=== PATIENT | male | born 1975 | race Caucasian/White ===

== ENCOUNTER → 2019-04-08 | Outpatient (CLI) | payer OTHER ==
--- NOTE | 2019-04-08 09:19 | MR ---
EXAMINATION TYPE: MR brain and iac wo/w con DATE OF EXAM: 04/08/2019 COMPARISON: None HISTORY: Sensorineural hearing loss, right ear CONTRAST: Performed utilizing 8 mL intravenous Gadavist gadolinium contrast. TECHNIQUE: Multiplanar, multiecho imaging on a 3.0 Aliyah magnet is performed through the brain. Atte ntion is paid to the internal auditory canals with thin section imaging. Postcontrast imaging is per formed through the internal auditory canals. FINDINGS:Craniovertebral junction is normal. The pituitary is normal. Diffusion-weighted imaging is performed. No suspicious hyperintensity is present to suggest an acute intracranial infarct or acute ischemic area. Signal within the brain is normal. There is a venous angioma within the right posterior parietal lobe , normal variant. Thin section imaging is performed through the internal auditory canals and cerebellar pontine angles. No cerebellar pontine angle masses are evident. The internal auditory canals appear normal without expansion or erosion. Postcontrast imaging was performed. No suspicious enhancement is evident within the internal audito ry canals or the included portions of the brain. Mucosal thickening is through the right maxillary sinus. There is some mucosal thickening within the anterior ethmoid air cells and within the frontal sinuses. Mastoid air cells are clear. IMPRESSIONS: 1. Normal internal auditory canals. 2. Venous angioma right posterior parietal lobe
== END | disposition home or self-care (01) ==
LOC: RADMRIMAIN 06:42
PROVIDERS: ATTEND Otolaryngology Otolaryngology/Facial Plastic Surgery
DX: Q28.3 Other malformations of cerebral vessels (principal)
CPT/HCPCS: 70553; A9585

== ENCOUNTER → 2021-01-26 | Outpatient (CLI) | payer OTHER ==
--- NOTE | 2021-01-26 18:09 | CONS ---
CONSULTATION REASON FOR CONSULTATION: Sleep apnea. HISTORY OF PRESENT ILLNESS: This patient was referred to me due to concerns of obstructive sleep apnea. The patient is a healthy 45-year-old male patient works for [employer] at [employer]. He does not feel any aircraft. His has been concerned about him snoring and quitting breathing in the middle of the night. The patient himself feels that he is not having any issues with his sleep quality. Never the less, with a recent 15 pounds weight gain, he has felt some increased tiredness and sleepiness during the day. His current Dunbar score is at 8. His sleep is non fragmented and he denies waking up in the middle of night choking or gasping for air. No restlessness in lower extremities. No choking or gasping sensation. He goes to bed around 11 p.m., wakes up 5 a.m. in the morning. On weekends, he wakes up at 8 o'clock in the morning, going to bed around midnight. No nocturia. No nocturnal heartburn, chest pain or shortness of breath. No sleep paralysis, hallucinations or cataplexy. No head trauma. PAST MEDICAL HISTORY: Depression, maintained on Lexapro, well treated. PAST SURGICAL HISTORY: Includes tonsillectomy, hernia repair (umbilical hernia) and right hip labrum tear repair. DRUG ALLERGIES: Not known. OUTPATIENT MEDICATIONS INCLUDE: Lexapro 10 mg p.o. daily. SOCIAL HISTORY: Nonsmoker. Drinks alcohol socially. No history of alcoholism. No history of IV drugs. He works for the [employer]. FAMILY HISTORY: Negative for sleep apnea. REVIEW OF SYSTEMS: Fourteen-point review of system was done. Positive findings are mentioned above in the history of present illness. PHYSICAL EXAMINATION: BP is 146/86, pulse 72, respirations 16, temperature 98.0, saturation 97% on room air. Height is 5 feet 10 inches. Weight 194. Neck size 16 inches. GENERAL appearance: Calm, comfortable. HEAD is atraumatic, normocephalic. NECK: Supple. Mallampati class 1. There is no goiter or neck masses. LUNGS: Clear to auscultation. HEART: Heart sounds are regular rate and rhythm. Normal S1, S2. No S3, no murmurs. ABDOMEN: Soft and nontender. EXTREMITIES: No edema. No cyanosis or clubbing. IMPRESSION: 1. Snoring with low suspicion for obstructive sleep apnea. With recent 15 pounds weight gain, the patient's snoring has gotten louder. The patient has noted to have some increased apneas. Consider underlying obstructive sleep apnea. 2. Hypersomnia, Dunbar score of 10, mild at this point. 3. History of depression. PLAN: 1. Encourage weight loss. 2. Extend sleep hours to an average of 7 or 8 hours per night if possible. 3. Proceed with a home sleep study to screen this patient for an underlying obstructive sleep apnea with understanding that the patient's overall clinical suspicion for REJI is quite low. He would benefit obviously from weight loss, knowing that his symptoms have gotten worse with a recent 15 pounds weight gain. 4. We will continue to follow. MMBRUCEL / IJN: [id number] /
== END ==
LOC: SLEEP 14:10
PROVIDERS: ATTEND Internal Medicine Critical Care Medicine
DX: G47.33 Obstructive sleep apnea (adult) (pediatric) (principal); F32.9 Major depressive disorder, single episode, unspecified
CPT/HCPCS: 99211